=== PATIENT | male | born 1965 | race Caucasian/White ===

== ENCOUNTER 2020-04-21 03:16 | Emergency (ER) | payer BC ==
[~2020-04-21] VITALS: Ht 165.1 cm; Wt 85.9 kg
[~2020-04-21 03:16] MED LIST: ENALAPRIL MALEA10 MG PO; HUMIRA40 MG/0.8 MR; KEFLEX500 MG PO; NORCO 325 MG-51 TAB PO; PURINETHOL50 MG PO; VITAMIN B11000 MCG/M IM
[2020-04-21 03:49] LABS: BASO % 0.3 % (0.0-1.0); EOS # 0.1 10*3/uL (0.0-0.4); EOS % 0.9 % (1.0-4.0); HEMATOCRIT 35.6 % (42.0-52.0); LYMPH # 0.9 10*3/uL (1.3-4.4); LYMPH % 14.2 % (27.0-41.0); MEAN CELL VOLUME 90.6 fl (80.0-94.0); MEAN CORPUSCULAR HGB 29.5 pg (27.0-31.0); MEAN CORPUSCULAR HGB CONC 32.6 g/dl (33.0-37.0); MEAN PLATELET VOLUME 10.2 fl (9.6-12.3); MONO # 0.6 10*3/uL (0.1-1.0); MONO % 8.7 % (3.0-9.0); NEUT # 4.8 10*3/uL (2.3-7.9); NEUT % 75.6 % (47.0-73.0); PLATELET COUNT AUTOMATED 175 10*3/uL (130-400); RED BLOOD COUNT 3.93 10*6/uL (4.50-5.90); RED CELL DISTRI WIDTH 12.8 % (0-14.5); WHITE BLOOD COUNT 6.3 10*3/uL (4.8-10.8)
[2020-04-21 04:02] LABS: ACT PARTIAL THROMBO TIME 24.2 SECONDS (20.0-32.1); INTERNATIONAL NORM RATIO 1.1 (2.0-3.5)
[2020-04-21 04:06] LABS: ALBUMIN 2.7 gm/dl (3.1-4.5); ALKALINE PHOSPHATASE 54 U/L (45-117); BUN 31 mg/dl (7-24); CHLORIDE 115 mmol/L (98-107); CREATININE 0.99 mg/dL (0.70-1.30); SGOT/AST 9 IU/L (3-35); SGPT/ALT 23 U/L (12-78); SODIUM 143 mmol/L (136-145); TOTAL PROTEIN 5.6 gm/dL (6.4-8.2)
[2020-04-21 04:17] VITALS: BP 84/55
[2020-04-21 04:50] VITALS: BP 105/69
[2020-04-21 05:00] VITALS: BP 98/68
[2020-04-21 05:16] VITALS: BP 95/67
[2020-04-21 05:30] VITALS: BP 101/63
== END 2020-04-21 06:29 | disposition short-term general hospital (02) ==
LOC: ED 03:16
PROVIDERS: Emergency Medicine
DX: K92.2 Gastrointestinal hemorrhage, unspecified (principal); I95.9 Hypotension, unspecified; Z79.899 Other long term (current) drug therapy

== ENCOUNTER 2022-04-15 08:45 | Inpatient (IN) | payer MEDICAID ==
[~2022-04-15] VITALS: Ht 165.1 cm; Wt 87.1 kg
[2022-04-15 09:27] LABS: BASO % 0.4 % (0.0-1.0); EOS # 0.1 10*3/uL (0.0-0.4); EOS % 0.5 % (1.0-4.0); HEMATOCRIT 54.1 % (42.0-52.0); LYMPH # 1.8 10*3/uL (1.3-4.4); LYMPH % 16.2 % (27.0-41.0); MEAN CELL VOLUME 87.7 fl (80.0-94.0); MEAN CORPUSCULAR HGB CONC 34.2 g/dl (33.0-37.0); MEAN PLATELET VOLUME 10.1 fl (9.6-12.3); MONO # 1.3 10*3/uL (0.1-1.0); MONO % 11.7 % (3.0-9.0); NEUT # 7.8 10*3/uL (2.3-7.9); NEUT % 70.8 % (47.0-73.0); PLATELET COUNT AUTOMATED 283 10*3/uL (130-400); RED BLOOD COUNT 6.17 10*6/uL (4.50-5.90); RED CELL DISTRI WIDTH 12.9 % (0-14.5)
[2022-04-15 09:43] LABS: CREATININE 8.19 mg/dL (0.70-1.30); POTASSIUM 4.9 mmol/L (3.5-5.1); TOTAL PROTEIN 8.8 gm/dL (6.4-8.2)
[2022-04-15 09:44] LABS: ACT PARTIAL THROMBO TIME 35.9 SECONDS (20.0-32.1)
[2022-04-15 12:11] VITALS: BP 90/66
[2022-04-15] MEDS ORDERED: ENALAPRIL20 MG PO (13:20)
[2022-04-15 14:04] VITALS: BP 90/64
[2022-04-15 14:15] VITALS: BP 88/58
[2022-04-15 15:45] LABS: BILIRUBIN Negative (Negative); BLOOD 1+ (Negative); CLARITY Turbid (Clear); COLOR Yellow (Yellow); GLUCOSE Negative (Negative); KETONE Trace (Negative); LEUKO ESTERASE Negative (Negative); NITRITE Negative (Negative); UROBILINOGEN 0.2 E.U./dl (0.0-1.0)
[2022-04-15 15:55] LABS: BACTERIA 3+; CALCIUM OXALATE CRYSTALS 3+
[2022-04-15 15:56] LABS: RBC 0-2 rbc/hpf (0-2); URINE CHLORIDE, RANDOM < 10 mmol/L
[2022-04-15 18:04] LABS: CREATININE 6.39 mg/dL (0.70-1.30)
[2022-04-15 18:15] LABS: POTASSIUM 3.9 mmol/L (3.5-5.1)
[2022-04-15 20:00] VITALS: BP 102/56
[2022-04-16] VITALS: BP 96/53
[2022-04-16 06:23] LABS: CREATININE 3.73 mg/dL (0.70-1.30); POTASSIUM 4.1 mmol/L (3.5-5.1)
[2022-04-16 06:34] LABS: BASO % 0.6 % (0.0-1.0); EOS # 0.1 10*3/uL (0.0-0.4); EOS % 1.3 % (1.0-4.0); HEMATOCRIT 47.4 % (42.0-52.0); LYMPH # 1.5 10*3/uL (1.3-4.4); LYMPH % 27.8 % (27.0-41.0); MEAN CELL VOLUME 88.8 fl (80.0-94.0); MEAN CORPUSCULAR HGB 30.5 pg (27.0-31.0); MEAN CORPUSCULAR HGB CONC 34.4 g/dl (33.0-37.0); MEAN PLATELET VOLUME 10.5 fl (9.6-12.3); MONO # 0.8 10*3/uL (0.1-1.0); MONO % 15.8 % (3.0-9.0); NEUT # 2.8 10*3/uL (2.3-7.9); NEUT % 53.9 % (47.0-73.0); RED BLOOD COUNT 5.34 10*6/uL (4.50-5.90); RED CELL DISTRI WIDTH 12.8 % (0-14.5); WHITE BLOOD COUNT 5.3 10*3/uL (4.8-10.8)
[2022-04-16 06:36] LABS: PLATELET COUNT AUTOMATED 184 10*3/uL (130-400)
[2022-04-16 08:00] VITALS: BP 123/85
[2022-04-16 12:00] VITALS: BP 122/78
[2022-04-16 16:00] VITALS: BP 122/71
[2022-04-16 20:00] VITALS: BP 125/80
[2022-04-17] VITALS: BP 131/82
[2022-04-17 06:33] LABS: BASO % 0.9 % (0.0-1.0); EOS # 0.1 10*3/uL (0.0-0.4); EOS % 2.7 % (1.0-4.0); HEMATOCRIT 44.6 % (42.0-52.0); LYMPH # 1.1 10*3/uL (1.3-4.4); LYMPH % 24.4 % (27.0-41.0); MEAN CELL VOLUME 90.1 fl (80.0-94.0); MEAN CORPUSCULAR HGB 30.5 pg (27.0-31.0); MEAN CORPUSCULAR HGB CONC 33.9 g/dl (33.0-37.0); MEAN PLATELET VOLUME 10.5 fl (9.6-12.3); MONO # 0.8 10*3/uL (0.1-1.0); MONO % 17.9 % (3.0-9.0); NEUT # 2.4 10*3/uL (2.3-7.9); NEUT % 53.9 % (47.0-73.0); PLATELET COUNT AUTOMATED 146 10*3/uL (130-400); RED BLOOD COUNT 4.95 10*6/uL (4.50-5.90); RED CELL DISTRI WIDTH 12.6 % (0-14.5); WHITE BLOOD COUNT 4.5 10*3/uL (4.8-10.8)
[2022-04-17 06:50] LABS: CHLORIDE 117 mmol/L (98-107); CREATININE 1.23 mg/dL (0.70-1.30); POTASSIUM 4.1 mmol/L (3.5-5.1); SODIUM 144 mmol/L (136-145)
[2022-04-17 06:57] LABS: BUN 35 mg/dl (7-24)
[2022-04-17 08:00] VITALS: BP 128/90
== END 2022-04-17 11:30 | disposition home or self-care (01) | DRG 426 ==
LOC: ED 08:45 → EDHOLD 13:17 → 4E 13:17
PROVIDERS: Family Medicine; ADMIT Internal Medicine; ATTEND Internal Medicine
DX: E87.1 Hypo-osmolality and hyponatremia (principal); A08.4 Viral intestinal infection, unspecified; N17.0 Acute kidney failure with tubular necrosis; I10 Essential (primary) hypertension; K50.90 Crohn's disease, unspecified, without complications; Z93.2 Ileostomy status; Z90.49 Acquired absence of other specified parts of digestive tract; Z79.899 Other long term (current) drug therapy